=== PATIENT | male | born 1975 | race Two or more races ===

== ENCOUNTER 2023-06-06 20:37 | Emergency (ER) | payer MEDICAID ==
[~2023-06-06] VITALS: Ht 172.7 cm; Wt 93.6 kg
[2023-06-06 21:04] VITALS: BP 158/93; PULSE 75; RESP 18; TEMP 98.3
[2023-06-06] MEDS ORDERED: DOCU-385 PO (22:08)
== END 2023-06-06 22:41 | disposition home or self-care (01) ==
LOC: EMS 20:41
DX: K64.9 Unspecified hemorrhoids (principal)
CPT/HCPCS: 99282; Z7502